=== PATIENT | female | born 1985 | race Caucasian/White ===

== ENCOUNTER 2021-11-24 14:20 | Emergency (ER) | payer MEDICAID, SELFPAY ==
[2021-11-24 14:26] VITALS: BP 116/74; PULSE 106; RESP 18; TEMP 36.8; O2SAT 100
--- NOTE | 2021-11-24 15:39 | ED.SKABFB ---
HPI - Skin/Abscess/Foreign Bdy General Chief complaint: Skin/Abscess/Foreign Body Stated complaint: rash Time Seen by Provider: 11/24/21 15:39 Source: patient Mode of arrival: ambulatory Limitations: no limitations History of Present Illness HPI narrative: The patient is a 36 yo female presenting for evaluation of rash. Patient with rash to both hands and genitalia. Pt notified of partner testing positive for syphylis. Pt reporting non painful llesions on hands and groin. She reports oral and vaginal intercourse with patient in July 2021, pt family notified as her partner became symptomatic in October and then tested positive. She denies vaginal discharge, bleeding. No pelvic pain. Reports mild sore throat. Denies fever or chills. Patient denies any dysuria or hematuria. Patient reports history of chlamydia when she was 19, states this was treated. Denies any flank pain. Related Data Allergies Allergy/AdvReac Type Severity Reaction Status Date / Time morphine Allergy Unknown Verified 11/24/21 16:21 Review of Systems Review of Systems: CONSTITUTIONAL: Denies fever, chills, or sweats. EYES: Denies visual changes, redness, or discharge. ENT: Denies rhinorrhea, congestion,reports sore throat CARDIOVASCULAR: Denies chest pain, palpitations, or edema. RESPIRATORY: Denies cough or dyspnea. GASTROINTESTINAL: Denies abdominal pain, nausea, vomiting, or diarrhea. GENITOURINARY: Denies dysuria or hematuria. SKIN: Reports rash to palms, groin; denies blistering or vesicles MUSCULOSKELETAL: Denies back pain, joint pain, or myalgia. NEUROLOGIC: Denies headache, numbness, or weakness. [facility] Social History Social History (Updated 11/24/21 @ 16:05 by Vesna Daniels MD) Smoking status: Current every day smoker Tobacco type: cigarettes Alcohol intake: never Substance use: never Substance use type: marijuana Gender identity (if verbalized by the patient): Female Exam Narrative: GENERAL: Awake, alert, conversant HEAD: Normocephalic, atraumatic. EYES: PERRLA and EOMI. ENT: Nares clear, no rhinorrhea or epistaxis. Mucous membranes moist. Uvula is midline. Mild erythema, edema of the left tonsil. No lesions of the tongue, pharynx. NECK: Supple. Submandibular lymphadenopathy. CHEST: No respiratory distress, breathing even and non labored HEART: Regular rate, sinus rhythm ABDOMEN:Non distended, non tender : Painless chancre to vulva, vagina, no vesicles or clusters, no discharge, no abscesses EXTREMITIES: Normal range of motion. No edema. SKIN: Warm, dry,non painful lesions to palms of hands, no vesicles NEURO:No focal deficits. Alert and oriented x3 Course Vital Signs Vital signs: Vital Signs Temperature 36.8 C 11/24/21 14:26 Pulse Rate 106 H 11/24/21 14:26 Respiratory Rate 18 11/24/21 14:26 Blood Pressure 116/74 11/24/21 14:26 Pulse Oximetry 100 11/24/21 14:26 Temperature 36.8 C 11/24/21 14:26 Pulse Rate 106 H 11/24/21 14:26 Respiratory Rate 18 11/24/21 14:26 Blood Pressure 116/74 11/24/21 14:26 Pulse Oximetry 100 11/24/21 14:26 MDM - Skin/Abscess/Foreign Bdy MDM Narrative Medical decision making narrative: Patient presenting for evaluation of syphilis exposure with rash to palms of hands, groin. Given clinical appearance, most consistent with secondary syphilis. Patient will be treated empirically with penicillin. Also after shared decision-making wanted to be treated for chlamydia, gonorrhea in the absence of symptoms for this. Pelvic exam shows no herpetic lesions, there are nonpainful chancres present. No vesicles. Patient was treated with Rocephin, penicillin here in the ER. Discharged home on doxycycline. No recent partners that patient needs to notify otherwise. No other systemic symptoms. No signs of tertiary, neurosyphilis. Differential Diagnosis Differential diagnosis: Likely abscess of skin or subcutaneous tissue, dermatophytosis, urticaria, herpes zoster, cellulitis, insect bi
[2021-11-24] MEDS: PENICILLIN G BENZATHINE 2,400,000 UNITS/4 ML SYRINGE 2400000 UNITS IM (16:29)
[2021-11-24] MEDS: cefTRIAXone 1 GM VIAL IM (16:29)
== END 2021-11-24 16:45 | disposition home or self-care (01) ==
PROVIDERS: Emergency Provider Emergency Medicine
DX: A53.9 Syphilis, unspecified (principal); F17.210 Nicotine dependence, cigarettes, uncomplicated
CPT/HCPCS: 96372; 99284; J0561; J0696